=== PATIENT | female | born 1985 | race Caucasian/White ===

== ENCOUNTER 2020-04-26 09:38 | Emergency (ER) | payer OTHER ==
[2020-04-26] MEDS ORDERED: HYDROCODON-ACE1 EAC4 PO (11:20)
[2020-04-27] MEDS ORDERED: PERCOCET 5/325 T1 EA PO (19:42)
== END 2020-04-26 11:47 | disposition home or self-care (01) ==
LOC: ER1 09:38
DX: S82.851A Displaced trimalleolar fracture of right lower leg, initial encounter for closed fracture (principal); W00.0XXA Fall on same level due to ice and snow, initial encounter; Y92.009 Unspecified place in unspecified non-institutional (private) residence as the place of occurrence of the external cause
CPT/HCPCS: 29515; 73610; 73630; 99283

== ENCOUNTER 2020-04-27 18:50 | Emergency (ER) | payer OTHER ==
[~2020-04-27 18:50] MED LIST: HYDROCODON-ACE1 EAC4 PO
[2020-04-27] MEDS ORDERED: PERCOCET 5/325 T1 EA PO (19:42)
== END 2020-04-27 19:56 | disposition home or self-care (01) ==
LOC: ER1 18:50
DX: S82.891A Other fracture of right lower leg, initial encounter for closed fracture (principal); Z76.0 Encounter for issue of repeat prescription; X58.XXXA Exposure to other specified factors, initial encounter
CPT/HCPCS: 99283